=== PATIENT | female | born 1960 | race Caucasian/White ===

== ENCOUNTER 2018-05-28 09:40 | Day surgery (SDC) | payer OTHER ==
[~2018-05-28 09:40] MED LIST: ACETAMINOPHEN 325 MG TAB PO; CYCLOPENTOLATE 2% OPHTH SOLN 2ML BTL OS; MIDAZOLAM INJ 2 MG/2 ML VIAL (J2250) As Ordered; PHENYLEPHRINE HCL 10 % OPHTH. SOL 5ML OS; PROPARACAINE 0.5% OPHTH SOL 15ML OS; fentaNYL 100 MCG/2 ML INJECTION (J3010) As Ordered
[2018-05-28] MEDS: OFLOXACIN 0.3 % (OCUFLOX) OPTH SOL 5ML OS (10:25)
[2018-05-28] MEDS: LIDOCAINE 3.5 % 1ML OPHTH TOPICAL GEL OU (10:25)
[2018-05-28] MEDS: PHENYLEPHRINE 2.5% OPHTH SOL 2ML OS (10:26)
[2018-05-28] MEDS: TROPICAMIDE 1% OPHTH SOLN 2ML OS (10:26)
[2018-05-28] MEDS: POVIDONE-IODINE 5% OPHTH PREP SOL 30ML As Ordered (10:45)
[2018-05-28] MEDS: BALANCED SALT IRRIGATION SOLUTION 500ML BAG (FOR OR EYE MACHINE) As Ordered (10:50)
[2018-05-28] MEDS: LIDOCAINE 1% SDV 5 ML VIAL As Ordered (10:51)
[2018-05-28] MEDS: CEFUROXIME 1MG/0.1ML INTRACAMERAL INJ As Ordered (10:51)
[2018-05-28] MEDS: HEALON DUET PRO(HEALON 10MG/ML 0.55ML & HEALON ENDOCOAT 30MG/ML 0.85ML) As Ordered (10:51)
[2018-05-28] MEDS: AcetaZOLAMIDE 500 MG ER CAP PO (11:19)
[2018-05-28] MEDS: KETOROLAC 0.5% OPHTH SOLN OS (11:20)
[2018-05-28] MEDS ORDERED: TRIMETHOBENZAMIDE 300 MG CAP PO (11:30)
[2018-05-28] MEDS ORDERED: LR 1,000 ML IV (11:30)
[2018-05-28] MEDS ORDERED: ONDANSETRON 4MG/2ML VIAL (J2405) IV (11:30)
[2018-05-28] MEDS ORDERED: ACETAMINOPHEN TAB 650MG DOSE (2X325MG) PO (11:30)
== END 2018-05-28 11:44 | disposition home or self-care (01) ==
LOC: M SDC 09:40
DX: H25.12 Age-related nuclear cataract, left eye (principal); I25.10 Atherosclerotic heart disease of native coronary artery without angina pectoris; I25.2 Old myocardial infarction; I10 Essential (primary) hypertension; E89.0 Postprocedural hypothyroidism; M54.9 Dorsalgia, unspecified; F41.1 Generalized anxiety disorder; Z79.899 Other long term (current) drug therapy; Z79.82 Long term (current) use of aspirin; Z86.19 Personal history of other infectious and parasitic diseases; Z78.0 Asymptomatic menopausal state; Z72.0 Tobacco use
CPT/HCPCS: 66984

== ENCOUNTER 2018-06-18 10:07 | Day surgery (SDC) | payer OTHER ==
[~2018-06-18] VITALS: Ht 167.6 cm; Wt 61.9 kg
[~2018-06-18 10:07] MED LIST changes: -ACETAMINOPHEN 325 MG TAB PO; +ACETAMINOPHEN 325 MG TAB PO PRN; +ASPI1TAB PO; +ATIV1TAB10 PO; +BALANCED SALT IRRIGATION SOLUTION 500ML BAG (FOR OR EYE MACHINE) As Ordered ONE; +CEFUROXIME 1MG/0.1ML INTRACAMERAL INJ As Ordered ONE; +CYCLOPENTOLATE 2% OPHTH SOLN 2ML BTL OD ONE; -CYCLOPENTOLATE 2% OPHTH SOLN 2ML BTL OS; +HEALON DUET PRO(HEALON 10MG/ML 0.55ML & HEALON ENDOCOAT 30MG/ML 0.85ML) As Ordered ONE; +LEVO150T7; +LIDOCAINE 1% SDV 5 ML VIAL As Ordered ONE; +LIDOCAINE 3.5 % 1ML OPHTH TOPICAL GEL OU ONE; +METO1TAB32 PO; -MIDAZOLAM INJ 2 MG/2 ML VIAL (J2250) As Ordered; +OFLOXACIN 0.3 % (OCUFLOX) OPTH SOL 5ML OD ONE; +PHENYLEPHRINE 2.5% OPHTH SOL 2ML OD ONE; +PHENYLEPHRINE HCL 10 % OPHTH. SOL 5ML OD PRN; -PHENYLEPHRINE HCL 10 % OPHTH. SOL 5ML OS; +POVIDONE-IODINE 5% OPHTH PREP SOL 30ML As Ordered ONE; +PROPARACAINE 0.5% OPHTH SOL 15ML OD PRN; -PROPARACAINE 0.5% OPHTH SOL 15ML OS; +TRAM50TA2 PO; +TROPICAMIDE 1% OPHTH SOLN 2ML OD ONE; -fentaNYL 100 MCG/2 ML INJECTION (J3010) As Ordered
[2018-06-18] MEDS ORDERED: MIDAZOLAM INJ 2 MG/2 ML VIAL (J2250) As Ordered ONE (12:20)
[2018-06-18] MEDS ORDERED: fentaNYL 100 MCG/2 ML INJECTION (J3010) As Ordered ONE (12:20)
[2018-06-18] MEDS ORDERED: AcetaZOLAMIDE 500 MG ER CAP PO ONE (13:00)
[2018-06-18] MEDS ORDERED: TRIMETHOBENZAMIDE 300 MG CAP PO PRN (13:00)
[2018-06-18] MEDS ORDERED: KETOROLAC 0.5% OPHTH SOLN OD ONE (13:00)
[2018-06-18 13:15] VITALS: BP 130/77
--- NOTE | 2018-06-19 10:13 | RO ---
DATE OF PROCEDURE: 06/18/2018 PREPROCEDURE DIAGNOSIS: Age-related nuclear cataract right eye. POSTPROCEDURE DIAGNOSIS: Age-related nuclear cataract right eye. PROCEDURE: Phacoemulsification and posterior chamber intraocular lens implantation. The lens used was [id number], 17.5 diopter. SURGEON: Sarah Jang MD [employer]PERVISOR TRIM: ANESTHESIA: Topical with sedation. DESCRIPTION OF PROCEDURE: The patient was prepped and draped in the usual fashion. A lid speculum was placed between the lids. The eye was fixated. A stab incision was made to the anterior chamber, and 1% nonpreserved lidocaine was instilled. Then, viscoelastic was instilled. The eye was re-fixated. A 2.75 mm sapphire keratome was used to make a clear corneal temporal limbal incision. Capsulorrhexis was begun with a 30-gauge bent needle and then carried out in a circular fashion with capsulorrhexis forceps. The lens was hydrodissected, and then the phacoemulsification unit was used to make a groove in the nucleus in two meridians. The nucleus was then cracked into four quadrants. Each quadrant was removed with the phacoemulsification unit. Any remaining cortex was removed with the irrigation and aspiration (I and A) unit. Capsular bag was refilled with viscoelastic. A posterior chamber intraocular lens was placed in the capsular bag without difficulty. Any remaining viscoelastic was removed with the I and A unit. The wound was hydrated, and Miochol and cefuroxime were instilled into the anterior chamber. The patient tolerated the procedure well and went to the recovery room in stable condition.
== END 2018-06-18 13:20 | disposition home or self-care (01) ==
LOC: M SDC 10:07
PROVIDERS: ATTEND Ophthalmology
DX: H25.11 Age-related nuclear cataract, right eye (principal); I25.10 Atherosclerotic heart disease of native coronary artery without angina pectoris; I25.2 Old myocardial infarction; I10 Essential (primary) hypertension; F17.210 Nicotine dependence, cigarettes, uncomplicated; Z79.82 Long term (current) use of aspirin; Z79.899 Other long term (current) drug therapy
CPT/HCPCS: 66984; J2250; J3010; V2632